=== PATIENT | female | born 1970 | race Caucasian/White ===

== ENCOUNTER → 2018-06-06 | Outpatient (CLI) | payer OTHER ==
[~2018-06-06] MED LIST: ACETAMINOPHEN-1 EAC1 PO; CIPRO500 M1 PO; CIPRO500 MG PO; EXCEDRIN MIGRA1 EAC1 PO; FLOMAX0.4 MG PO; HYDROCODONE-AP1 EAC6 PO; OCELLA TABLET1 EACH PO; ZOFRAN ODT4 MG DISSOLVE
== END ==
LOC: M.RAD 11:04
DX: Z12.31 Encounter for screening mammogram for malignant neoplasm of breast (principal); Z72.89 Other problems related to lifestyle